=== PATIENT | female | born 1930 | race Caucasian/White ===

== ENCOUNTER 2016-07-07 16:49 | Emergency (ER) | payer MEDICARE ==
[~2016-07-07 16:49] MED LIST: 8 HOUR650 MG PO; ARICEPT10 PO; MULTIVIT/MIN PO; NORV5 PO; OSTEO BI-FLEX1 EACH PO; SURBEX-T1 TAB PO; VITAMIN D31000 UNIT PO
== END 2016-07-07 21:02 | disposition home or self-care (01) ==
LOC: ER 16:49
PROC: 0HQ1XZZ Repair Face Skin, External Approach (ICD-10-PCS; principal; 2016-07-07)
DX: S01.111A Laceration without foreign body of right eyelid and periocular area, initial encounter (principal); H11.31 Conjunctival hemorrhage, right eye; Z79.899 Other long term (current) drug therapy; W19.XXXA Unspecified fall, initial encounter
CPT/HCPCS: 70450; 70486; 90714; 99285